=== PATIENT | female | born 1940 | race Caucasian/White ===

== ENCOUNTER 2017-09-02 20:31 | Emergency (ER) | payer MEDICARE, OTHER ==
[~2017-09-02] VITALS: Ht 165.1 cm; Wt 90.0 kg
[~2017-09-02 20:31] MED LIST: 1-ME1LIQ PO; ALPR0.25 PO; ASPI81TA82 PO; CEPH500C3 PO; COZA100T PO; HYDR-3533 PO; LAMO25TA PO; METF500 PO; METO100T9 PO; OMEP20TA39 PO; PARO40TA PO; PRAV80 PO
[2017-09-02 20:42] VITALS: BP 172/74; PULSE 58; RESP 22; TEMP 98.6; O2SAT 95
[2017-09-02] MEDS ORDERED: ASPI-183 PO (20:56)
[2017-09-02] MEDS ORDERED: METF500T PO (20:56)
[2017-09-02] MEDS ORDERED: ROSU40 PO (20:56)
[2017-09-02] MEDS ORDERED: COZA100T PO (20:56)
[2017-09-02] MEDS ORDERED: METO1TAB43 PO (20:56)
[2017-09-02] MEDS ORDERED: OMEP20TA93 PO (20:56)
[2017-09-02] MEDS ORDERED: LAMO100T PO (20:56)
[2017-09-02] MEDS ORDERED: ALPR.25 PO (20:56)
--- NOTE | 2017-09-02 20:56 | PD ---
HPI Chief Complaint: Fall Time Seen by Provider: 20:41 Travel History International Travel<30 days: No Contact w/Intl Traveler<30days: No Traveled to known affect area: No History of Present Illness HPI 77-year-old white female presents emergency department by EMS for evaluation of a fall. Patient was placed in a c-collar and a dressing applied. Patient states that she stumbled on a curb falling forward onto her left knee, and left forehead. She denies syncope. No nausea vomiting. No numbness, tingling or weakness. No neck or back pain. Pain is mild. She did sustain a laceration to her forehead. She is up-to-date with immunizations. No exacerbating or alleviating factors. She denies alcohol.Patient does take an aspirin a day. No other blood thinners. PFSH Past Medical History Narrative Medical Hypertension, diabetes, hypercholesterolemia, arthritis, gallstones, chronic back pain Tetanus Vaccination: < 5 Years ?: Not Past Surgical History Narrative Surgical Cholecystectomy, partial hysterectomy, tonsillectomy, lumbar discectomy, bilateral cataract removal Social History Alcohol Use: Yes Tobacco Use: No Substance Use: No Allergies-Medications (Allergen,Severity, Reaction): Coded Allergies: codeine (Unverified Allergy, Severe, 01/05/17) Reported Meds & Prescriptions Reported Meds & Active Scripts Active Schofield (Hydrocodone-Acetaminophen) 5 Mg-325 Mg Tab 1 Tab PO Q6H PRN 3 Days Reported Crestor (Rosuvastatin Calcium) 40 Mg Tab 40 Mg PO DAILY Omeprazole 20 Mg Tab 20 Mg PO BID Metoprolol Succinate ER 24 HR (Metoprolol Succinate) 100 Mg Tab 100 Mg PO DAILY Metformin (Metformin HCl) 500 Mg Tab 500 Mg PO DAILY With a meal Cozaar (Losartan Potassium) 100 Mg Tab 100 Mg PO DAILY Lamotrigine 100 Mg Tab 100 Mg PO BID Aspirin 325 Mg Tab 325 Mg PO DAILY Xanax (Alprazolam) 0.25 Mg Tab 0.25 Mg PO BID PRN Review of Systems General / Constitutional: No: Fever Eyes: No: Blurred Vision, Visual changes HENT: Positive: Neck Stiffness ( ), No: Headaches, Neck Pain Cardiovascular: No: Chest Pain or Discomfort Respiratory: No: Shortness of Breath Gastrointestinal: No: Abdominal Pain Genitourinary: No: Dysuria Musculoskeletal: Positive: Arthralgias, Limited ROM, Pain Skin: Positive Rash (Abrasion) Neurologic: No: Weakness, Dizziness, Syncope, Focal Abnormalities, Headache, Change in Mentation, Slurred Speech, Paresthesia, Incontinence, Seizures, Sensory Disturbance Psychiatric: No: Depression Endocrine: No: Polydipsia Hematologic/Lymphatic: No: Easy Bruising Physical Exam Narrative GENERAL: Well-developed, well-nourished in no apparent distress. Nontoxic appearing. HEAD: Patient has a dressing on her forehead. She is in a c-collar. EYES: Pupils equal round and reactive. Extraocular motions intact. No scleral icterus. No injection or drainage. ENT: Nose clear. Throat without erythema, tonsillar hypertrophy or exudate. Uvula midline. Airway patent. NECK: Trachea midline. Patient c-collar is removed. Her C-spine is cleared. There is no central bony tenderness to palpation. Range of motion is somewhat limited but according to the patient is chronic due to arthritis. No gross spasm. CARDIOVASCULAR: Regular rate and rhythm without murmurs, gallops, or rubs. RESPIRATORY: Clear to auscultation. Breath sounds equal bilaterally. No wheezes , rales, or rhonchi. GASTROINTESTINAL: Abdomen soft, non-tender, nondistended. No hepato-splenomegaly , or palpable masses. No guarding. EXTREMITIES: No clubbing, cyanosis, patient has an abrasion and some tenderness over the left patella. She has full extension but has slightly limited flexion due to pain. No pain in the hip, ankle or foot. The right lower extremity as well as the upper extremities are unremarkable for acute bony tenderness or deformity. Neurovascular intact.. BACK: Nontender without deformity. No flank tenderness. NEUROLOGICAL: Awake, alert and oriented x 3 .Cranial nerves grossly intact. Motor and sensory grossly within normal limits. Normal speech. Data Data Last Documented VS Vital Signs Date Time Temp Pulse Resp B/P (MAP) Pulse Ox O2 Delivery O2 Flow Rate FiO2 09/02/17 20:42 98.6 58 22 172/74 (106) [address] Brain W/O Iv Contrast(Rout) (09/02/17 20:48) Ct Cerv Spine W/O Contrast (09/02/17 20:48) Knee, Ltd (1 Or 2vws) (09/02/17 20:48) Ice/Cold Pack (09/02/17 20:48) Acetaminophen (Tylenol) (09/02/17 21:00) Ed Discharge Order (09/02/17 21:53) [facility] Medical Decision Making Medical Screen Exam Complete: Yes Emergency Medical Condition: Yes Medical Record Reviewed: Yes Interpretation(s) Last 24 hours Impressions Knee X-Ray 09/02/172047 Signed Impressions: Service Date/Time: August 21:18 - CONCLUSION: 1. No evidence of fracture or malalignment on this limited 2 view study. 2. Osteoarthritic change. Eloy Rolle MD Head CT 09/02/172047 Signed Impressions: Service Date/Time: August 21:23 - CONCLUSION: Soft tissue swelling over the frontal bone with no evidence of fracture or hemorrhage. Eloy Rolle MD Cervical Spine CT 09/02/172047 Signed Impressions: Service Date/Time: August 21:23 - CONCLUSION: Negative trauma CT. Eloy Rolle MD Differential Diagnosis MDM: High Differential diagnoses: Fracture, sprain, strain, dislocation, contusion, neurovascular injury Narrative Course Patient is given ice pack, Tylenol [address] scan of the head, neck. X- ray of the left knee. Patient's forehead reveals no laceration. She has a abrasion to the forehead which has been Cleansed and Neosporin has been applied. This is head contusion, facial abrasion, left knee contusion, fall Diagnosis Primary Impression: Head contusion Additional Impressions: facial abrasion left knee contusion Fall Patient Instructions: General Instructions Additional Instructions: Rest. Head precautions. Tylenol for pain. Ice packs. Medications as directed. Daily wound care with soap, water, Neosporin. Avoid alcohol. Avoid all sedating or intoxicating substances. Recheck with your physician within 1-2 days. Return to the ER for any problems. Med/Other Pt SpecificInfo: Prescription(s) given, Wound Care Scripts Hydrocodone-Acetaminophen (Schofield) 5 Mg-325 Mg Tab 1 TAB PO Q6H Y for PAIN for 3 Days, #12 TAB 0 Refills Prov: Kiko Bang MD 09/02/17 Disposition: 01 DISCHARGE HOME Condition: Stable Keelen,Saman T. PA Sep 02, 2017 20:56
[2017-09-02] MEDS ORDERED: ACETAMINOPHEN 500 MG CPLT PO ONE (21:00)
--- NOTE | 2017-09-02 21:31 | RADRPT ---
EXAM DATE/TIME: 09/02/2017 21:18 [facility] COMPARISON: No previous studies available for comparison. INDICATIONS : Left knee pain; fall today. MEDICAL HISTORY : None. SURGICAL HISTORY : None. ENCOUNTER: Initial ACUITY: 1 day PAIN SCORE: 4/10 LOCATION: Left knee. FINDINGS: Limited AP and lateral views of the left knee were obtained and not a standard 4 view trauma series l imiting the sensitivity. There is mild osteopenia and normal alignment with no evidence of fracture. Degenerative changes are noted in the medial compartment with joint space loss, sclerosis and spurrin g. There is moderate degenerative changes in the patellofemoral joint as well. There is evidence of a joint effusion. Vascular calcifications are present. CONCLUSION: 1. No evidence of fracture or malalignment on this limited 2 view study. 2. Osteoarthritic change. Eloy Rolle MD on September 02, 2017 at 21:27 Board Certified Radiologist. This report was verified electronically.
--- NOTE | 2017-09-02 21:34 | RADRPT ---
EXAM DATE/TIME: 09/02/2017 21:23 [facility] COMPARISON: CT BRAIN W/O CONTRAST, September 08, 2014, 11:18. INDICATIONS : Trauma, fall. RADIATION DOSE: 29.83 CTDIvol (mGy) MEDICAL HISTORY : None SURGICAL HISTORY : None. ENCOUNTER: Initial ACUITY: 1 day PAIN SCALE: 5/10 LOCATION: cranial TECHNIQUE: Multiple contiguous axial images were obtained of the head. Using automated exposure control and adj ustment of the mA and/or kV according to patient size, radiation dose was kept as low as reasonably a chievable to obtain optimal diagnostic quality images. DICOM format image data is available electro nically for review and comparison. FINDINGS: CEREBRUM: The ventricles are normal for age. No evidence of midline shift, mass lesion, hemorrhage or acute in farction. No extra-axial fluid collections are seen. POSTERIOR FOSSA: The cerebellum and brainstem are intact. The 4th ventricle is midline. The cerebellopontine angle i s unremarkable. EXTRACRANIAL: The visualized portion of the orbits is intact. There is soft tissue swelling over the frontal bone. There is opacification of the left ethmoidal air cells again noted. SKULL: The calvaria is intact. No evidence of skull fracture. CONCLUSION: Soft tissue swelling over the frontal bone with no evidence of fracture or hemorrhage . Eloy Rolle MD on September 02, 2017 at 21:30 Board Certified Radiologist. This report was verified electronically.
--- NOTE | 2017-09-02 21:41 | RADRPT ---
EXAM DATE/TIME: 09/02/2017 21:23 [facility] COMPARISON: CT CERVICAL SPINE W/O CONTRAST, September 08, 2014, 11:18. INDICATIONS : Trauma, fall. RADIATION DOSE: 17.70 CTDIvol (mGy) MEDICAL HISTORY : None SURGICAL HISTORY : None. ENCOUNTER: Initial ACUITY: 1 day PAIN SCALE: 5/10 LOCATION: neck TECHNIQUE: Volumetric scanning of the cervical spine was performed. Multiplanar reconstructions i n the sagittal, coronal and oblique axial planes were performed. Using automated exposure control a nd adjustment of the mA and/or kV according to patient size, radiation dose was kept as low as reason ably achievable to obtain optimal diagnostic quality images. DICOM format image data is available e lectronically for review and comparison. FINDINGS: The sagittal reconstructions demonstrate intact vertebral bodies and normal prevertebral soft tissues . The dens is intact and there is a normal atlantoaxial relationship. Degenerative disc changes are a gain noted at the C5-6 and C6-7 levels with disc space narrowing hypertrophic change. There is mild a nterior spondylolisthesis of C4 on C5. The axial images demonstrate that the vertebral bodies and posterior elements are intact. The soft ti ssues are within normal limits. There is no evidence of acute fracture or malalignment. Hypertrophic changes are noted involving several of the right facets. CONCLUSION: Negative trauma CT. Eloy Rolle MD on September 02, 2017 at 21:35 Board Certified Radiologist. This report was verified electronically.
[2017-09-02] MEDS ORDERED: NORC5TAB PO (21:53)
== END 2017-09-02 22:14 | disposition home or self-care (01) ==
LOC: NEPD 20:31
DX: S00.81XA Abrasion of other part of head, initial encounter (principal); S80.02XA Contusion of left knee, initial encounter; E11.9 Type 2 diabetes mellitus without complications; I10 Essential (primary) hypertension; W01.0XXA Fall on same level from slipping, tripping and stumbling without subsequent striking against object, initial encounter; Z79.84 Long term (current) use of oral hypoglycemic drugs
CPT/HCPCS: 70450; 72125; 73560; 99284